=== PATIENT | male | born 1995 | race Caucasian/White ===

== ENCOUNTER 2022-12-24 22:55 | Observation (INO) | payer OTHER, SELFPAY ==
--- NOTE | ~2022-12-24 | XR_ITS ---
EXAMINATION: XR chest 1V portable DATE: 12/25/2022 00:48 INDICATION: Cough. TECHNIQUE: A single frontal view of the chest was obtained. COMPARISON: None. FINDINGS: There are mild airspace opacities in left lower lung zone. No pleural effusion or pneumotho rax. The heart size is normal. IMPRESSION: 1. Mild airspace opacities in left lower lung zone, consistent with atelectasis versus pneumonia. Reviewed, dictated and finalized at location A.
[2022-12-24 22:55] VITALS: BP 164/85; PULSE 111; RESP 16; TEMP 36.2; O2SAT 95
--- NOTE | 2022-12-24 22:59 | ECG_ITS ---
Measurements Intervals [place] Rate: 116 P: 66 MD: 126 QRS: 40 QRSD: 86 T: 55 QT: 318 QTc: 443 Interpretive Statements SINUS TACHYCARDIA ABNORMAL ECG NO PREVIOUS ECG AVAILABLE FOR COMPARISON Electronically Signed On 12-28-2022 12:06:47 CDT by Andrew Messer D.O.
[2022-12-24 23:05] VITALS: O2SAT 95
--- NOTE | 2022-12-24 23:16 | ED.GENADULT ---
HPI - General Adult General Chief complaint: Seizure Stated complaint: Seizure Time Seen by Provider: 12/24/22 22:59 History of Present Illness HPI narrative: 27-year-old male with prior history of seizures presented to the emerged department for evaluation of 2 seizures tonight. Family states that the patient is taking lamotrigine and Keppra for his seizures. They do suspect he is generally compliant with his medications but he has been possibly falling asleep before his nighttime dose and parents suspect that maybe he has unintentionally missed some medications. Family states that patient did have a seizure at approximately 930 this evening that lasted about 3 minutes and then about 20 minutes later patient had a second seizure lasting about 5 minutes. They state the second seizure was more intense and was tonic-clonic in nature and they state that he had a prolonged postictal phase after the second seizure. Patient does have follow-up with Dr. Rai PRICE for neurology. They did increase his lamotrigine recently. Family states that the patient has seizures approximately every 6 months and has been about 5 months since his last seizure. Upon arrival to the ED patient is more alert but is still somnolent. Patient denies any pain or injury. Family states that the patient does not typically drink alcohol or smoke. They state that he did have a beer recently and they do suspect that he had some THC edibles. Related Data Home Medications Medication Instructions Recorded Confirmed lamotrigine 150 mg tablet 300 mg PO BID 12/25/22 12/25/22 (Lamictal) levetiracetam 1,000 mg tablet 2,000 mg PO BID 12/25/22 12/25/22 Allergies Allergy/AdvReac Type Severity Reaction Status Date / Time No Known Allergies Allergy Verified 12/24/22 23:08 Review of Systems Review of Systems: All systems reviewed & are unremarkable except as noted in HPI and below PMFSH Past Medical History Medical History (Updated 12/25/22 @ 05:13 by Cassie Sanchez DO) BMI 32.0-32.9,adult Complex partial epilepsy with recurrent seizures (~2016) Hyperuricemia Resulting in acute kidney injury 2019 Surgical History Surgical History (Updated 12/25/22 @ 05:08 by Cassie Sanchez DO) History of eye surgery To correct diplopia Family History Family History (Updated 12/25/22 @ 01:47 by Cherelle Barragan RN) Father Acute myocardial infarction Hypertension Gout Grandparent Malignant neoplasm of prostate Grandparent Diabetes mellitus Social History Social History (Updated 12/25/22 @ 01:11 by Cassie Sanchez DO) Social History: Code status: Full code Smoking status: Never smoker Second hand tobacco smoke exposure: Yes Alcohol intake: never Substance use: never Lack of Transportation: No Lack of Food: Never True Current Housing: I Have Housing Concerned About Future Housing: No Difficulty Paying Gas/Electric Bills: No Difficulty Paying for Meds: No Currently Unemployed: No Education: Master's Degree or Higher Difficulty w/ Childcare or Family Care: No Additional living arrangements comments: He lives with his parents 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 Exam Narrative: APPEARANCE: Well appearing, no pain, no distress, well-nourished. HEAD: normocephalic, atraumatic. EYES: PERRLA/EOMI, conjunctivae clear. NOSE: Normal no drainage NECK: Supple. No adenopathy, no masses. RESPIRATORY: Airway patent, respirations nonlabored. Clear to auscultation bilaterally, no rales, rhonchi, wheezing. CARDIOVASCULAR: Regular rate and rhythm without murmurs rubs or gallops. ABDOMINAL: Soft, nontender, nondistended, normal bowel sounds MUSCULOSKELETAL: Moves all extremities. Strength/ROM intact, No edema, No calf tenderness. NEURO: Alert. Cranial nerves II through XII intact. Grossly intact SKIN: Warm, dry. Normal Color Course Course Emergency Co
[2022-12-24 23:20] LABS: Hematocrit 52.9 % (42.0-52.0); Hemoglobin 17.1 g/dL (14.0-18.0); Mean Corpuscular HGB Conc 32.3 g/dl (32-36); Mean Corpuscular Hemoglobin 29.6 pg (26-34); Mean Corpuscular Volume 91.5 fl (80-100); Mean Platelet Volume 10.4 fl (7.4-10.4); Platelet Count Result 390 k/mm3 (150-375); Red Blood Count 5.78 M/mm3 (4.6-6.20); Red Cell Distribution Width 12.5 % (11.5-14.5); White Blood Count 20.5 K/mm3 (4.5-10.0)
[2022-12-24] MEDS: levETIRAcetam 1000MG/NACL100ML 1,000 MG/100 ML BAG 400 MG IVPB (23:20)
[2022-12-24] MEDS: SODIUM CHLORIDE 0.9% IV 1,000 ML 999 ML IV CONT (23:20)
[2022-12-24 23:32] VITALS: BP 143/57; PULSE 101; RESP 20; O2SAT 92
[2022-12-24 23:34] LABS: Alanine Aminotransferase 67 U/L (6-50); Alkaline Phosphatase 85 U/L (38-126); Aspartate Amino Transferase 41 U/L (17-59); Bilirubin,Total 0.5 mg/dL (0.2-1.3); Blood Urea Nitrogen 14 mg/dL (9-20); Calcium 9.7 mg/dL (8.4-10.2); Carbon Dioxide < 5 mmol/L (22-30); Chloride 101 mmol/L (98-107); Estimated CRCL calculation 73 ml/min; Estimated Glomerular Filt Rate 57; Glucose 166 mg/dL (65-110); Potassium 3.8 mmol/L (3.4-5.0); Sodium 143 mmol/L (137-145)
[2022-12-24 23:47] LABS: Band Neutrophils Percent 7 % (0-6); Giant Platelets Present; Lymphocytes Absolute Manual 7.38 K/mm3 (1.1-4.5); Monocytes Absolute Manual 1.84 K/mm3 (0.1-0.90); Monocytes Percent Manual 9 % (3-9); Neutrophils Absolute Manual 11.27 K/mm3 (1.3-6.7); Neutrophils Percent Manual 48 % (46-73); Platelet Estimate Adequate (Adequate); Schistocytes None Seen (NORMAL); Total Cells Counted 100
[2022-12-25] VITALS (14 sets, daily range): BP systolic 127–146; BP diastolic 67–97; PULSE 73–102; RESP 15–20; TEMP 36.1–37.3; O2SAT 96–100; BMI 33.5
[2022-12-25 00:09] LABS: Influenza A QL RT-PCR Negative (Negative); Influenza B QL RT-PCR Negative (Negative); RSV RNA, RT-PCR Negative (Negative); SARS-CoV-2 RNA PCR Negative (Negative)
--- NOTE | 2022-12-25 00:44 | PM.IMHP ---
H&P: HPI History of Present Illness Date/Time: 12/25/22 00:44 Chief Complaint: Seizure x2 Narrative: 27-year-old male with a past medical history of obesity, hyperuricemia, prior acute kidney injury and epilepsy with complex partial seizures who presented to the ER via EMS from home due to breakthrough seizure. Source of information is past medical records, external records and ER report. ER physician in pain most of the information from the patient's family. The patient has had a history of seizures since approximately 2015. He usually has seizures every 5-6 months. The patient just had follow-up with his neurologist this week. He had been doing well and was almost to the point that he could get is license back because he had been seizure-free for 5 months. However around 9:30 in the evening the patient had 3 minute tonic clonic seizure. His seizure stopped and approximately 20 minutes later he had a 2nd seizure lasting approximately 5 minutes. At that time his parents decided to call EMS. His family reports that they think that he has been taking his seizure medications. However there is a possibility he may not have been taking some of his evening doses because he has been falling asleep early in the evening. He reports that he had been having some upper respiratory symptoms recently. The patient would wake up for me but was giving limited answers and kept falling back asleep. He reports to me that he was not having any cough or fever he was as having rhinorrhea. Before I could ask about any a other symptoms the patient was again back to sleep. I tried to wake the patient up again for more information but this was not successful. The patient states that he takes 2-150 mg tablets of Lamictal twice daily and that this was recently increased. However external med rec indicates that is a prescription was filled for 150 mg tablets daily. Attentive leave the patient's report of the 300 mg as his prior dose had been 250 mg b.i.d.. I was unable to confirm this with discussion with patient as I was seeing him much later than when the nursing staff had seen him and was more difficult to wake up due to the lateness of the hour complicating his already postictal state. Review of Systems Review of Systems: ROS unobtainable: Yes unobtainable due to medical condition (Postictal state) [facility] Past Medical History Medical History (Updated 05/28/23 @ 05:13 by Cassie Sanchez DO) BMI 32.0-32.9,adult Complex partial epilepsy with recurrent seizures (~2016) Hyperuricemia Resulting in acute kidney injury 2019 Surgical History Surgical History (Updated 12/25/22 @ 05:08 by Cassie Sanchez DO) History of eye surgery To correct diplopia Family History Family History (Updated 12/25/22 @ 01:47 by Cherelle Barragan RN) Father Acute myocardial infarction Hypertension Gout Grandparent Malignant neoplasm of prostate Grandparent Diabetes mellitus Social History Social History (Updated 12/25/22 @ 01:11 by Cassie Sanchez DO) Social History: Code status: Full code Smoking status: Never smoker Second hand tobacco smoke exposure: Yes Alcohol intake: never Substance use: never Lack of Transportation: No Lack of Food: Never True Current Housing: I Have Housing Concerned About Future Housing: No Difficulty Paying Gas/Electric Bills: No Difficulty Paying for Meds: No Currently Unemployed: No Education: Master's Degree or Higher Difficulty w/ Childcare or Family Care: No Additional living arrangements comments: He lives with his parents 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 Meds Home Medications and Allergies Home Medications Medication Instructions Recorded Confirmed Type lamotrigine 150 mg tablet 300 mg PO BID 12/25/22 12/25/22 History (Lamictal) levetiracetam 1,000 mg tablet 2,000 mg PO BID 12/25/22 12/25/22 History
[2022-12-25] MEDS: SODIUM CHLORIDE 0.9% IV 1,000 ML 999 ML IV CONT (00:46)
--- NOTE | 2022-12-25 01:27 | ADMGEN ---
This patient, Gamaliel Burt, was admitted to IMU Room 203-01 at 0126. Patient/family oriented to hospital policies and general routines including ID bracelet, bed and alarms, visiting hours, pain management, procedures, bathroom and other care routines, personal items, smoking policy, room service/diet, and visiting hours. Information on how to activate the Rapid Response Team has been discussed. Patient/Family are encouraged to report perceived risks to care and to ask questions if they do not understand what they are told or what they should do.
[2022-12-25 01:54] LABS: Creatine Kinase 224 U/L (55-170)
--- NOTE | 2022-12-25 01:54 | PC.NURSE ---
This patient, Gamaliel Burt, was admitted to IMU Room 203-01 at 0130. Patient/family oriented to hospital policies and general routines including ID bracelet, bed and alarms, visiting hours, pain management, procedures, bathroom and other care routines, personal items, smoking policy, room service/diet, and visiting hours. Information on how to activate the Rapid Response Team has been discussed. Patient/Family are encouraged to report perceived risks to care and to ask questions if they do not understand what they are told or what they should do.
[2022-12-25] MEDS: SODIUM CHLORIDE 0.9% IV 1,000 ML 100 ML IV CONT (02:10)
[2022-12-25] MEDS: ONDANSETRON INJ 4 MG/2 ML VIAL IV PUSH (06:22)
[2022-12-25 06:32] LABS: Basophils Percent Auto 0.3 % (0.2-1.2); Eosinophils Percent Auto 0.3 % (0-4.4); Hematocrit 43.1 % (42.0-52.0); Hemoglobin 14.9 g/dL (14.0-18.0); Immature Granulocyte Absolute 0.18 K/mm3 (0.00-0.031); Immature Granulocyte Percent A 1.3 % (0-0.5); Lymphocytes Absolute Auto 0.79 K/mm3 (0.9-3.2); Lymphocytes Percent Auto 5.8 % (18.3-44.2); Mean Corpuscular HGB Conc 34.6 g/dl (32-36); Mean Corpuscular Hemoglobin 29.6 pg (26-34); Mean Corpuscular Volume 85.5 fl (80-100); Mean Platelet Volume 9.7 fl (7.4-10.4); Monocytes Absolute Auto 1.4 K/mm3 (0.1-0.6); Monocytes Percent Auto 10.4 % (2.6-8.5); Neutrophils Absolute Auto 11.1 K/mm3 (1.3-6.7); Neutrophils Percent Auto 81.9 % (45.5-73.1); Platelet Count Result 268 k/mm3 (150-375); Red Blood Count 5.04 M/mm3 (4.6-6.20); Red Cell Distribution Width 12.4 % (11.5-14.5); White Blood Count 13.6 K/mm3 (4.5-10.0)
[2022-12-25 06:46] LABS: Anion Gap 9 mmol/L (8-16); Blood Urea Nitrogen 20 mg/dL (9-20); Calcium 8.4 mg/dL (8.4-10.2); Carbon Dioxide 23 mmol/L (22-30); Chloride 109 mmol/L (98-107); Estimated CRCL calculation 86 ml/min; Estimated Glomerular Filt Rate > 60; Glucose 115 mg/dL (65-110); Sodium 141 mmol/L (137-145)
[2022-12-25 07:18] LABS: Uric Acid 19.5 mg/dL (3.5-8.5)
[2022-12-25] MEDS: lamoTRIgine 100 MG TABLET 300 MG PO (08:45)
[2022-12-25] MEDS: levETIRAcetam 500 MG TABLET 2000 MG PO (08:45)
[2022-12-25] MEDS: ENOXAPARIN 40 MG/0.4 ML SYRINGE SUB-Q (08:45)
--- NOTE | 2022-12-25 11:32 | PM.DS ---
DS: Admitting Diagnosis Discharge Date 12/25/2022 Admitting Diagnosis Generalized tonic clonic seizure DS: Discharge Diagnosis Discharge Diagnosis (1) Breakthrough seizure: Code(s): G40.919 - Epilepsy, unspecified, intractable, without status epilepticus Status: Acute (2) Complex partial epilepsy with recurrent seizures: Onset Date: ~2015 Code(s): G40.209 - Localization-related (focal) (partial) symptomatic epilepsy and epileptic syndromes with complex partial seizures, not intractable, without status epilepticus Status: Acute (3) Acute kidney injury: Code(s): N17.9 - Acute kidney failure, unspecified Status: Acute (4) Symptoms of upper respiratory infection (URI): Code(s): R09.89 - Other specified symptoms and signs involving the circulatory and respiratory systems Status: Acute (5) Bandemia without diagnosis of specific infection: Code(s): D72.825 - Bandemia Status: Acute DS: Summary Hospital Course Reason for hospitalization: Seizures Hospital Course: 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 The 1st lasted 2-3 minutes the 2nd 1 about 5 minutes. His parents helped ease him to the floor so that he was not injured. He did not bite his tongue. He did not his head as far as at home. He has episodes about every 5-6 months of recurrent breakthrough seizures. He sees a neurologist at [facility] and is taking levetiracetam 2000 mg twice a day and lamotrigine 300 mg twice a day. He denies any missed doses. However last evening the parents told the admitting physician that he might of medicine evening doses occasionally because sometimes he falls asleep early. His creatinine was 1.5 on admission but after fluids overnight is normal at 1.3. His uric acid was 19.5. He has a history of hyperuricemia that is untreated. He has a family history of gout in both his paternal grandfather and his father. He has never had a gout attack or kidney stone himself. Was encouraged to follow up with his primary physician to consider treatment of his asymptomatic hyperuricemia. On day of discharge she had no seizures overnight. Telemetry was unremarkable with sinus rhythm. He was alert oriented person place and time. He tolerated his diet and walk the farrar without difficulty. [place] [address] and on follow-up 13,600. He had mild left lung atelectasis lower lobe on chest x-ray no other symptoms or signs of infection. He did have mild upper historian symptoms recently. He remained afebrile overnight. He did have mild bandemia that was improving as well. It was presumed that his leukocytosis was due to demargination. Time Spent with Patient Time attestation: Total time spent providing and/or coordinating discharge services: Exam Narrative: HEENT: PERRL, sclerae nonicteric, pharyngeal mucosa pink and intact NECK: No JVD CHEST: Clear to auscultation. Normal effort. HEART: NL S1/S2, regular, no murmur ABDOMEN: BS+, soft, nontender, no mass, no bruits EXTREMITIES: No cyanosis, edema, or clubbing NEUROLOGIC: CN intact and symmetric to inspection. No tremors. MUSCULOSKELETAL: Tone and strength symmetric. PSYCH: Alert. Oriented to person, place, and time. DS: Data Data Completed and Pending Labs on day of discharge: Labs from last 24 hours 12/25/22 12/25/22 12/24/22 06:22 01:39 23:29 WBC 13.6 H RBC 5.04 Hgb 14.9 Hct 43.1 MCV 85.5 D MCH 29.6 MCHC 34.6 RDW 12.4 Plt Count 268 MPV 9.7 Immature Gran % (Auto) 1.3 H Neut % (Auto) 81.9 H Lymph % (Auto) 5.8 L [place] % (Auto) 10.4 H Eos % (Auto) 0.3 Baso % (Auto) 0.3 Lymph # (Auto) 0.79 L [place] # (Auto) 1.4 H Eos # (Auto) 0.0 Baso # (Auto) 0.0 Abs Immat Gran (auto) 0.18 H
--- NOTE | 2022-12-25 13:08 | WPDNEURCNPN ---
Assessment and Plan Assessment and plan (1) Breakthrough seizure: Code(s): G40.919 - Epilepsy, unspecified, intractable, without status epilepticus Status: Acute Plan 1. 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 Breakthrough seizures plan is to continue the same medication with seizure precaution and further adjustment accordingly considering that he goes to [facility] the mother was advised to return there for the follow-up Consult date: 12/25/22 HPI: Gamaliel Burt is a 27 year old male Admitted to the hospital through the emergency room for the complaints of 2 seizures 2 9 patient has been taking lamotrigine and Keppra for his control of epilepsy and generally is compliant apparent suspected that he might have missed the medication on intentionally at night and had a seizure at 9:30 a.m. p.m. which lasted for about 3 minutes and subsequently 20 minutes later he had 2nd seizure which lasted for 5 minutes which was more intense and was tonic-clonic in nature followed by the postictal phase patient is being followed for the ongoing epilepsy at the [facility] on arrival in the ER he was awake alert he has not reportedly allergic to any medication vital signs were normal except blood pressure 164/85 CBC with WBC 20.5 BMP with blood sugar of 166 chest x-ray did not reveal aspiration pneumonia. [facility] Past Medical History Medical History (Updated 12/25/22 @ 05:13 by Cassie Sanchez DO) BMI 32.0-32.9,adult Complex partial epilepsy with recurrent seizures (~2016) Hyperuricemia Resulting in acute kidney injury 2019 Surgical History Surgical History (Updated 12/25/22 @ 05:08 by Cassie Sanchez DO) History of eye surgery To correct diplopia Family History Family History (Updated 12/25/22 @ 01:47 by Cherelle Barragan RN) Father Acute myocardial infarction Hypertension Gout Grandparent Malignant neoplasm of prostate Grandparent Diabetes mellitus Social History Social History (Updated 12/25/22 @ 01:11 by Cassie Sanchez DO) Social History: Code status: Full code Smoking status: Never smoker Second hand tobacco smoke exposure: Yes Alcohol intake: never Substance use: never Lack of Transportation: No Lack of Food: Never True Current Housing: I Have Housing Concerned About Future Housing: No Difficulty Paying Gas/Electric Bills: No Difficulty Paying for Meds: No Currently Unemployed: No Education: Master's Degree or Higher Difficulty w/ Childcare or Family Care: No Additional living arrangements comments: He lives with his parents 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 Meds Home Medications and Allergies Home Medications Medication Instructions Recorded Confirmed Type lamotrigine 150 mg tablet 300 mg PO BID 12/25/22 12/25/22 History (Lamictal) levetiracetam 1,000 mg tablet 2,000 mg PO BID 12/25/22 12/25/22 History Allergies Allergy/AdvReac Type Severity Reaction Status Date / Time No Known Allergies Allergy Verified 12/24/22 23:08 Vital Signs Vital Signs - 24 hr 12/24/22 22:55 12/24/22 23:05 12/24/22 23:32 Temperature 36.2 C L Pulse Rate 111 H 101 H Respiratory Rate 16 20 Blood Pressure 164/85 H 143/57 H Pulse Oximetry 95 95 92 Oxygen Delivery Room Air Room Air 12/25/22 00:15 12/25/22 00:01 12/25/22 00:31 Temperature 36.4 C L Pulse Rate 83 78 Respiratory Rate 16 15 Blood Pressure 134/67 127/68 Pulse Oximetry 98 Oxygen Delivery 12/25/22 01:01 12/25/22 01:30 12/25/22 01:31 Temperature 36.6 C Pulse Rate 83 102 H 101 H Respiratory Rate 16 18 Blood Pressure 145/84 H 140/83 Pulse Oximetry 100 100 Oxygen Delivery 12/25/22 01:30 12/25/22 03:35 12/25/22 03:47 Temperature 36.1 C L Pulse Rate 93 Respiratory Rate 18 Blood Pressure 131/82 Pulse Oximetry 98
[2022-12-28 18:22] LABS: Levetiracetam Keppra 14.2 mcg/mL (6.0-46.0)
[2022-12-29 11:42] LABS: Lamotrigine Lamictal 1.6 mcg/mL (2.5-15.0)
== END 2022-12-25 14:25 | disposition home or self-care (01) ==
LOC: ANHED 23:54 → ANHIMU 12-25 01:30
PROVIDERS: Admitting Provider Internal Medicine; Emergency Provider Emergency Medicine; PCP Family Medicine; Visit Provider Internal Medicine
DX: G40.919 Epilepsy, unspecified, intractable, without status epilepticus (principal); G40.209 Localization-related (focal) (partial) symptomatic epilepsy and epileptic syndromes with complex partial seizures, not intractable, without status epilepticus; N17.9 Acute kidney failure, unspecified; D72.829 Elevated white blood cell count, unspecified; R09.89 Other specified symptoms and signs involving the circulatory and respiratory systems; Z20.822 Contact with and (suspected) exposure to COVID-19; D72.825 Bandemia; R00.0 Tachycardia, unspecified; E79.0 Hyperuricemia without signs of inflammatory arthritis and tophaceous disease; R94.31 Abnormal electrocardiogram [ECG] [EKG]; R91.8 Other nonspecific abnormal finding of lung field; E66.9 Obesity, unspecified; Z68.33 Body mass index [BMI] 33.0-33.9, adult; Z79.899 Other long term (current) drug therapy
CPT/HCPCS: 36415; 71045; 80048; 80053; 80175; 80177; 82550; 83605; 84550; 85025; 87637; 93005; 96361; 96365; 96372; 96375; 99285; A9270; G0378; J1650; J1953; J2405; J7030

== ENCOUNTER 2025-06-20 18:30 | Emergency (ER) | payer OTHER, SELFPAY ==
[2025-06-20] VITALS (13 sets, daily range): BP systolic 123–142; BP diastolic 78–90; PULSE 81–119; RESP 17–27; TEMP 36.6; O2SAT 94–100
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
--- NOTE | ~2025-06-20 | CT_ITS ---
EXAMINATION: CT brain wo con DATE: 06/20/2025 19:29 INDICATION: Seizure. TECHNIQUE: Computed tomography (CT) of the head was performed without intravenous contrast. The mA was adjusted according to patient size. Iterative reconstruction technique was employed. The dose-length product was 681.00 mGy-cm. COMPARISON: CT head dated 08/03/2015. FINDINGS: No acute intracranial bleed. No effacement of sulci. No evidence of ventriculomegaly or midline shift. No acute cranial fracture. IMPRESSION: 1. No acute findings in the limited noncontrast CT head. Reviewed, dictated and finalized at location T. AGE REPAIRER
--- NOTE | 2025-06-20 18:54 | PC.NURSE ---
Parents called by this RN per pt. request. Talked to pt. Mom who states she is coming to the ER. Pt. updated and verbalized appreciation.
--- NOTE | 2025-06-20 19:03 | PC.NURSE ---
patient stated that he has been seizure free for approx. 6 months. stated that he has been taking his Keppra faithfully. has neurologist.
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
[2025-06-20 19:26] LABS: Hematocrit 46.0 % (42.0-52.0); Hemoglobin 15.5 g/dL (14.0-18.0); Immature Granulocyte Percent A 1.0 % (0-0.5); Lymphocytes Absolute Auto 2.00 K/mm3 (0.9-3.2); Mean Corpuscular HGB Conc 33.7 g/dl (32-36); Mean Corpuscular Hemoglobin 29.4 pg (26-34); Mean Corpuscular Volume 87.3 fl (80-100); Nucleated Red Blood Cells Absolute Auto 0.000 K/mm3 (0.0-0.012); Nucleated Red Blood Cells Perc 0.0 % (0.0-0.2); Platelet Count Result 322 k/mm3 (150-375); Red Blood Count 5.27 M/mm3 (4.6-6.20); White Blood Count 8.2 K/mm3 (4.5-10.0)
[2025-06-20] MEDS: LACTATED RINGERS 1,000 ML 999 ML IV CONT (19:33)
[2025-06-20] MEDS: levETIRAcetam 1500MG/NACL100ML 1,500 MG/100 ML BAG 400 MG IVPB (19:34)
[2025-06-20] MEDS: levETIRAcetam 500MG/NACL 100ML 500 MG/100 ML BAG 400 MG IVPB (19:59)
[2025-06-20 20:03] LABS: Alanine Aminotransferase 35 U/L (6-50); Albumin Level 5.1 g/dL (3.5-5.1); Alkaline Phosphatase 74 U/L (38-126); Anion Gap 13 mmol/L (4-12); Aspartate Amino Transferase 37 U/L (17-59); Bilirubin,Total 0.4 mg/dL (0.2-1.3); Blood Urea Nitrogen 15 mg/dL (9-20); Calcium 9.8 mg/dL (8.4-10.2); Carbon Dioxide 21 mmol/L (22-30); Chloride 103 mmol/L (98-107); Estimated CRCL calculation 95 ml/min; Estimated Glomerular Filt Rate > 60; Glucose 90 mg/dL (65-110); Magnesium 2.8 mg/dL (1.6-2.3); Potassium 4.5 mmol/L (3.4-5.0); Sodium 137 mmol/L (137-145); Total Protein 8.3 g/dL (6.3-8.2)
== END 2025-06-20 20:55 | disposition home or self-care (01) ==
PROVIDERS: Emergency Provider Student in an Organized Health Care Education/Training Program; PCP Family Medicine
DX: G40.909 Epilepsy, unspecified, not intractable, without status epilepticus (principal); Z79.899 Other long term (current) drug therapy; V43.52XA Car driver injured in collision with other type car in traffic accident, initial encounter
CPT/HCPCS: 36415; 70450; 71045; 80053; 82077; 83735; 85025; 96365; 99284; A9270; J1953; J7120

== ENCOUNTER 2025-06-27 22:10 | Emergency (ER) | payer OTHER, SELFPAY ==
--- OUTSIDE RECORDS SUMMARY | 2025-06-27 22:11 | XMS_ITS | Encounter Summary ---
Author Organization [facility] Address [address] [place], [place] [address] [address] Care Team Providers Care Paper Sorter And Counter Name Role Phone Kam Cohen MD Primary Care Provider [phone] Reason for Visit * Reason Onset Date Comments MEDICATION REFILL 07/03/2022 Encounter Details Date Type Department Care Team (Late st Contact Info) Description 07/03/2022 Refill [facility] [address] [place] [address] [phone] Garland Owens, BRAIN WAVE TECHNICIAN-BUILDING PRESSURE WASHER [address] [id number] MEDICATION REFILL Social History Tobacco Use Types Packs/Day Years Used Date Smoking Tobacco: Never Smokeless Tobacco: Never Alcohol Use Standard Drinks/Week Comments Not Currently 0 (1 standard drink = 0.6 oz pur e alcohol) Sex and Gender Information Value Date Recorded Sex Assigned at Not on file Legal Sex Male 10:18 AM PARCEL POST DELIVERY Gender Identity Not on file Sexual Orientation Not on file documented as of this encounter Plan of Treatment Upcoming Encounters Date Type Department Care Team (Late st Contact Info) Description 08/13/2025 3:30 PM PARCEL POST DELIVERY Video Visit [facility] [address] [place] [phone] Farideh Cadena, BRAIN WAVE TECHNICIAN-BUILDING PRESSURE WASHER [address] [place] [phone] documented as of this encounter Visit Diagnoses Diagnosis Localization-related (focal) (partial) idiopathic epilepsy and epileptic syndromes with seizures of localized onset, not intractable, without status epilepticus (HCC) Convulsions, unspecified convulsion type (HCC) documented in this encounter Care Teams Paper Sorter And Counter Relationship Specialty Start Date End Date Kam Cohen MD [address] [place] [address] PCP - General 10/01/21 documented as of this encounter
--- OUTSIDE RECORDS SUMMARY | 2025-06-27 22:11 | XMS_ITS | Encounter Summary ---
Author Organization [facility] Address [address] [place], [place] [address] [address] Care Team Providers Care Materials Engineer Name Role Phone Kam Cohen MD Primary Care Provider [phone] Reason for Visit * Reason Onset Date Comments MEDICATION REFILL 12/09/2023 Encounter Details Date Type Department Care Team (Late Contact Info) Description 12/09/2023 Refill [facility] Neurology [address] [place] [phone] Reid Atwood SHIP CARPENTER-INTERNET SOURCER [address] [place] [address] MEDICATION REFILL Social History Tobacco Use Types Packs/Day Years Used Date Smoking Tobacco: Never Smokeless Tobacco: Never Alcohol Use Standard Drinks/Week Comments Not Currently 0 (1 standard drink = 0.6 oz pur e alcohol) Sex and Gender Information Value Date Recorded Sex Assigned at Not on file Legal Sex Male 10:18 AM APPLICATIONS SCIENTIST Gender Identity Not on file Sexual Orientation Not on file documented as of this encounter Plan of Treatment Upcoming Encounters Date Type Department Care Team (Late Contact Info) Description 08/13/2025 3:30 PM APPLICATIONS SCIENTIST Video Visit [facility] [address] [place] [address] [phone] Farideh Cadena, SHIP CARPENTER-INTERNET SOURCER [address] [place] [phone] documented as of this encounter Visit Diagnoses Not on filedocumented in this encounter Care Teams Materials Engineer Relationship Specialty Start Date End Date Kam Cohen MD [address] [place] [address] PCP - General 10/01/21 documented as of this encounter
[2025-06-27 22:14] VITALS: PULSE 100; RESP 20; TEMP 36.9; O2SAT 99
[2025-06-27 22:20] VITALS: PULSE 92; RESP 21; O2SAT 94
[2025-06-27 22:35] VITALS: PULSE 92; RESP 20; O2SAT 98
[2025-06-27 22:36] LABS: Hematocrit 47.6 % (42.0-52.0); Hemoglobin 16.1 g/dL (14.0-18.0); Immature Granulocyte Percent A 4.0 % (0-0.5); Lymphocytes Absolute Auto 2.59 K/mm3 (0.9-3.2); Mean Corpuscular HGB Conc 33.8 g/dl (32-36); Mean Corpuscular Hemoglobin 29.5 pg (26-34); Mean Corpuscular Volume 87.3 fl (80-100); Nucleated Red Blood Cells Absolute Auto 0.000 K/mm3 (0.0-0.012); Nucleated Red Blood Cells Perc 0.0 % (0.0-0.2); Platelet Count Result 301 k/mm3 (150-375); Red Blood Count 5.45 M/mm3 (4.6-6.20); White Blood Count 9.2 K/mm3 (4.5-10.0)
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
[2025-06-27 22:50] LABS: Alanine Aminotransferase 37 U/L (6-50); Albumin Level 5.3 g/dL (3.5-5.1); Alkaline Phosphatase 80 U/L (38-126); Anion Gap 10 mmol/L (4-12); Aspartate Amino Transferase 34 U/L (17-59); Bilirubin,Total 0.3 mg/dL (0.2-1.3); Blood Urea Nitrogen 16 mg/dL (9-20); Calcium 10.2 mg/dL (8.4-10.2); Carbon Dioxide 26 mmol/L (22-30); Chloride 104 mmol/L (98-107); Estimated CRCL calculation 83 ml/min; Estimated Glomerular Filt Rate > 60; Glucose 93 mg/dL (65-110); Potassium 4.6 mmol/L (3.4-5.0); Sodium 140 mmol/L (137-145); Total Protein 8.4 g/dL (6.3-8.2)
[2025-06-27 23:34] LABS: Add Urine Microscopic? YES; Appearance Urine Clear (Clear); Glucose Urine UA Negative (Negative); Leukocyte Esterase Ur Negative LEU/UL (Negative); Nitrate Urine Negative (Negative); Non Pathogenic Casts 0-2; Specific Grav Ur 1.020 (1.001-1.035)
[2025-06-27 23:44] VITALS: PULSE 79; RESP 20; O2SAT 97
[2025-06-27 23:45] VITALS: PULSE 77; RESP 24; O2SAT 98
[2025-06-27 23:46] VITALS: BP 145/89; PULSE 84; RESP 22; O2SAT 97
[2025-06-27 23:53] LABS: Cannabinoid Screen Urine Positive (Negative)
== END 2025-06-28 00:07 | disposition home or self-care (01) ==
PROVIDERS: Emergency Provider Physician Assistant; PCP Family Medicine
DX: G40.909 Epilepsy, unspecified, not intractable, without status epilepticus (principal); Z77.22 Contact with and (suspected) exposure to environmental tobacco smoke (acute) (chronic); Z79.899 Other long term (current) drug therapy
CPT/HCPCS: 36415; 80053; 80307; 81001; 82077; 82948; 85025; 99283